=== PATIENT | female | born 1995 | race Caucasian/White ===

== ENCOUNTER 2019-07-15 14:14 | Emergency (ER) | payer OTHER ==
[~2019-07-15] VITALS: Ht 162.6 cm; Wt 72.6 kg
[2019-07-15 14:37] VITALS: BP 127/76
--- NOTE | 2019-07-15 14:37 | NUR ---
PT AMBULATED TO BED WITH PARTNER
[2019-07-15 15:03] LABS: BILIRUBIN,URINE NEGATIVE (NEGATIVE); BLOOD, URINE NEGATIVE (NEGATIVE); COLOR,URINE YELLOW (YELLOW); LEUKOCYTE ESTERASE ,URINE 1+ (NEGATIVE); NITRITE, URINE POSITIVE (NEGATIVE); PH,URINE 6.5 (5.0-9.0); UGLUCOSE NEGATIVE (NEGATIVE)
[2019-07-15 15:04] LABS: APPEARANCE,URINE CLOUDY (CLEAR)
--- NOTE | 2019-07-15 16:12 | NUR ---
BIB SELF C/O LUQ LLQ ABD PAIN 02/15, CONSTIPATION (LAST BM YESTERDAY), N/V X 1 MONTH. AFTER MEALS PT REPORTS GETTING VERY NAUSEOUS AND VOMITING. LAST EMESIS EPISODE WAS THIS MORNING. NO INJURY REPORTED. ABD LLQ/LLUQ FLAT/ TENDER. BOWEL SOUNDS NORMO ACTIVE IN ALL QUADRANTS. NO SOB/CHEST PAIN/ FEVER NOTED. NO PMH, NKA
[2019-07-15 16:48] LABS: RBC,URINE NONE SEEN /HPF (0-5)
[2019-07-15 16:55] VITALS: BP 126/67
--- NOTE | 2019-07-15 16:56 | NUR ---
Patient discharged with v/s stable. Written and verbal after care instructions given and explained. Patient alert, oriented and verbalized understanding of instructions. Ambulatory with steady gait. All questions addressed prior to discharge. ID band removed. Patient advised to follow up with PMD. Rx of BACTRIM/GOLYTELY/MAGNESIUM/ZOFRAN given. Patient educated on indication of medication including possible reaction and side effects. Opportunity to ask questions provided and answered.
== END 2019-07-15 16:56 | disposition home or self-care (01) ==
LOC: MED 14:14
DX: K59.00 Constipation, unspecified (principal); R11.2 Nausea with vomiting, unspecified
CPT/HCPCS: 74021; 76856; 81001; 81025; 87086; 87186; 93976; 99284; Q0092

== ENCOUNTER 2019-08-20 16:11 | Emergency (ER) | payer OTHER ==
[~2019-08-20] VITALS: Ht 162.6 cm; Wt 76.2 kg
[2019-08-20 16:20] VITALS: BP 123/69
--- NOTE | 2019-08-20 16:28 | NUR ---
23 Y/O F C/C VAGINAL DISCHARGE AFTER LIFTING HEAVY BOX AT WORK, WITH LOWER QUADRANT ABDOMINAL PAIN 7/10 X 1 DAY. PER PT DISCHARGE IS CLEAR, WITH NO FOUL SMELL. PT 7 WEEKS , WITH HX OF 1 MISCARRIAGE IN PAST. CURRENT BURNING SENSATION WHEN URINATING. PT NOT TAKEN ANY MEDICATIONS AT HOME FOR PAIN. NKA. NO MEDICAL HX. NO RX. CURRENTLY NAUSEUS DUE TO . NO V/D. SIDE RAIL X1. FAMILY AT BEDSIDE.
[2019-08-20] MEDS: ACETAMINOPHEN 325 MG TAB PO ONE (16:51)
[2019-08-20 17:39] LABS: APPEARANCE,URINE SL CLOUDY (CLEAR); BILIRUBIN,URINE NEGATIVE (NEGATIVE); BLOOD, URINE NEGATIVE (NEGATIVE); COLOR,URINE DARK YELLOW (YELLOW); LEUKOCYTE ESTERASE ,URINE NEGATIVE (NEGATIVE); NITRITE, URINE NEGATIVE (NEGATIVE); PH,URINE 6.5 (5.0-9.0); UGLUCOSE NEGATIVE (NEGATIVE)
--- NOTE | 2019-08-20 18:16 | NUR ---
PT LEFT FACILITY WITHOUT DISCHARGE INSTRUCTIONS.
[2019-08-20 18:17] VITALS: BP 123/69
== END 2019-08-20 18:16 | disposition home or self-care (01) ==
LOC: MED 16:11
DX: R10.819 Abdominal tenderness, unspecified site (principal)
CPT/HCPCS: 76817; 81003; 99284; Q0092

== ENCOUNTER 2019-08-30 12:09 | Emergency (ER) | payer OTHER ==
[~2019-08-30] VITALS: Ht 162.6 cm; Wt 76.2 kg
[2019-08-30 12:16] VITALS: BP 100/65
--- NOTE | 2019-08-30 13:41 | NUR ---
PT CALLED--NOT IN LOBBY.
--- NOTE | 2019-08-30 13:47 | NUR ---
PATIENT LEFT WITHOUT BEING SEEN BY DR. MOREL. NO FURTHER CARE PROVIDED FOR PATIENT.
--- NOTE | 2019-08-30 13:52 | NUR ---
CALLED FOR PT IN LOBBY--NO RESPONSE
== END 2019-08-30 13:52 | disposition left against medical advice (07) ==
LOC: MED 12:09
DX: Z00.00 Encounter for general adult medical examination without abnormal findings (principal); Z53.21 Procedure and treatment not carried out due to patient leaving prior to being seen by health care provider